=== PATIENT | female | born 1985 | race Caucasian/White ===

== ENCOUNTER 2018-06-06 08:56 | Emergency (ER) | payer MEDICAID, OTHER ==
[~2018-06-06] VITALS: Ht 160 cm; Wt 49.9 kg
[2018-06-06 08:57] VITALS: BP 133/97
[2018-06-06] MEDS ORDERED: MORPHINE SULFATE 4 MG/ML SYR IVP ONE (09:00)
[2018-06-06] MEDS ORDERED: ONDANSETRON 4 MG/2 ML VIAL IVP ONE (09:00)
[2018-06-06] MEDS ORDERED: NACL 0.9% 1,000 ML IV SCH (09:00)
[2018-06-06 11:02] LABS: BASOPHILS % (AUTO) 0.7 % (0.0-2.0); EOSINOPHILS # (AUTO) 0.1 K/uL (0-0.4); EOSINOPHILS % (AUTO) 1.1 % (0.0-4.0); HEMATOCRIT 41.1 % (36-48); HEMOGLOBIN 13.9 g/dL (12.0-16.0); LYMPHOCYTES # (AUTO) 1.1 K/uL (2.5-16.5); LYMPHOCYTES % (AUTO) 19.6 % (20.5-51.1); MEAN CORPUSCULAR HEMOGLOBIN 31 pg (27-31); MEAN CORPUSCULAR HGB CONC 34 g/dL (33-37); MEAN CORPUSCULAR VOLUME 91.7 fL (80-94); MONOCYTES # (AUTO) 0.6 K/uL (0.8-1.0); MONOCYTES % (AUTO) 11.6 % (1.7-9.3); NEUTROPHILS # (AUTO) 3.6 K/uL (1.8-7.7); PLATELET COUNT (AUTO) 272 K/uL (140-450); RED BLOOD CELL COUNT(AUTO) 4.48 MIL/uL (4.20-5.40); RED CELL DISTRIBUTION WIDTH 13.2 % (11.6-13.7); WHITE BLOOD COUNT (AUTO) 5.4 K/uL (4.8-10.8)
[2018-06-06 11:34] LABS: ANION GAP 11.5 (8-16); CARBON DIOXIDE 26.8 mmol/L (21-32); CREATININE 0.5 mg/dL (0.6-1.3); POTASSIUM 3.3 mmol/L (3.5-5.1)
[2018-06-06 11:40] LABS: ALBUMIN 3.7 g/dL (3.4-5.0); TOTAL BILIRUBIN 0.8 mg/dL (0.0-1.0)
[2018-06-06 11:58] VITALS: BP 109/85
== END 2018-06-06 11:59 | disposition home or self-care (01) ==
LOC: MED 08:56
DX: S09.90XA Unspecified injury of head, initial encounter (principal); Y04.2XXA Assault by strike against or bumped into by another person, initial encounter; Y93.89 Activity, other specified; Y92.481 Parking lot as the place of occurrence of the external cause; Y99.8 Other external cause status
CPT/HCPCS: 36415; 70450; 80053; 82550; 85025; 96374; 96375; 99285; J2270; J2405; J7030

== ENCOUNTER 2019-04-16 18:52 | Emergency (ER) | payer OTHER ==
[~2019-04-16] VITALS: Ht 167.6 cm; Wt 53.5 kg
[2019-04-16 19:11] VITALS: BP 147/97
--- NOTE | 2019-04-16 19:15 | NUR ---
DR JAY AT BEDSIDE
[2019-04-16] MEDS: KETOROLAC 60 MG/2 ML VIAL IM ONE (19:18)
--- NOTE | 2019-04-16 19:19 | NUR ---
BIBA C/O L SIDED BODY PAIN AFTER TRYING TO REACH TOP SHELF AT [employer] AND FALLING. DENIES HITTING HEAD OR LOC. PAIN /, REQUESTING PAIN MEDICATIONS. NO OBVIOUS BRUISING, ABRASIONS, OR LACERATIONS. [id number]. BED IS DOWN, LOCKED, BED RIAL X 1, ERMD TO SEE PT. PMH- DENIES RX- DENIES
[2019-04-16 19:40] VITALS: BP 145/93
== END 2019-04-16 19:40 | disposition home or self-care (01) ==
LOC: MED 18:52
DX: M25.512 Pain in left shoulder (principal); M25.552 Pain in left hip
CPT/HCPCS: 96372; 99283; J1885